=== PATIENT | male | born 1980 | race African-American/Black ===

== ENCOUNTER 2017-04-29 08:32 | Emergency (ER) | payer SELFPAY ==
[~2017-04-29] VITALS: Ht 182.9 cm; Wt 79.4 kg
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
--- NOTE | 2017-04-29 09:29 | NUR ---
Patient discharged to home in stable condition. Written and verbal after care instructions given. Patient verbalizes understanding of instruction. Ambulatory with a steady gait. NAD. VS WNL.
[2017-04-29 09:30] VITALS: BP 155/90
--- NOTE | 2017-04-29 09:48 | NUR ---
At time of d/c, pt c/o not being able to move his right thumb, some swelling noted now. notified.
--- NOTE | 2017-04-29 10:05 | NUR ---
Gave pt ice pack for thumb.
== END 2017-04-29 10:44 | disposition home or self-care (01) ==
LOC: ER 08:33
DX: S13.4XXA Sprain of ligaments of cervical spine, initial encounter (principal); S70.01XA Contusion of right hip, initial encounter; V49.49XA Driver injured in collision with other motor vehicles in traffic accident, initial encounter; Y93.89 Activity, other specified; Y92.413 State road as the place of occurrence of the external cause; Y99.8 Other external cause status
CPT/HCPCS: 72040-TC; 72170-TC; 73140-TC; A4606; Z7610